=== PATIENT | male | born 1950 | race Caucasian/White ===

== ENCOUNTER → 2016-08-10 | Outpatient (CLI) | payer MEDICARE, OTHER ==
[~2016-08-10] MED LIST: CALCIUM600 MG PO; D3-20002000 UNIT PO; DARUNAVIR PO; EMTRICITABINE PO; FOSAMAX70 MG PO; JEVITY 1.2 CA1000 ML GT; LEVAQUIN500 MG PO; NORVIR80 MG/1 ML PO; OXYCODONE20 MG/1 ML PO; PROMETHAZI6.25 MG/5 PO; REYATAZ200 MG PO; SODIUM CL 0.91000 ML IV; TRUVADA 200 MG1 EACH PO; VIREAD PO
== END ==
LOC: EMI 13:28
DX: C44.42 Squamous cell carcinoma of skin of scalp and neck (principal); C79.89 Secondary malignant neoplasm of other specified sites; Z21 Asymptomatic human immunodeficiency virus [HIV] infection status; Z98.890 Other specified postprocedural states; R60.0 Localized edema
CPT/HCPCS: 70543; A9577; J7050

== ENCOUNTER 2016-09-06 15:06 | Emergency (ER) | payer MEDICARE, OTHER ==
[2016-09-06 16:50] LABS: HEMOGLOBIN 11.8 gm/dl (14.0-17.5); RED BLOOD COUNT 3.64 M/UL (4.20-5.50); WHITE BLOOD COUNT 14.4 K/UL (4.5-11.0)
[2016-09-06 17:10] LABS: BUN/CREATININE RATIO 18 (0-10)
[2016-12-13] MEDS ORDERED: TRUVADA 200 MG1 EACH PO (09:02)
[2016-12-13] MEDS ORDERED: NORVIR80 MG/1 ML PO (09:03)
[2016-12-13] MEDS ORDERED: REYATAZ200 MG PO (09:03)
[2016-12-13] MEDS ORDERED: OXYCODONE20 MG/1 ML PO (09:04)
[2016-12-13] MEDS ORDERED: CALCIUM600 MG PO (09:04)
[2016-12-13] MEDS ORDERED: FOSAMAX70 MG PO (09:04)
[2016-12-13] MEDS ORDERED: D3-20002000 UNIT PO (09:05)
[2016-12-13] MEDS ORDERED: PROMETHAZI6.25 MG/5 PO (14:47)
[2016-12-13] MEDS ORDERED: LEVAQUIN500 MG PO (14:48)
[2016-12-13] MEDS ORDERED: SODIUM CL 0.91000 ML IV (14:49)
[2016-12-13] MEDS ORDERED: EMTRICITABINE PO (15:01)
[2016-12-13] MEDS ORDERED: DARUNAVIR PO (15:01)
[2016-12-13] MEDS ORDERED: VIREAD PO (15:03)
[2016-12-13] MEDS ORDERED: JEVITY 1.2 CA1000 ML GT (18:01)
== END 2016-09-06 19:30 | disposition home or self-care (01) ==
LOC: ER1 15:06
PROVIDERS: Specialist/Technologist Athletic Trainer
DX: E86.0 Dehydration (principal); N39.0 Urinary tract infection, site not specified; Z85.820 Personal history of malignant melanoma of skin
CPT/HCPCS: 36415; 80053; 81001; 85025; 87040; 87077; 87086; 87186; 99284